=== PATIENT | female | born 1975 | race Caucasian/White ===

== ENCOUNTER → 2025-01-08 15:32 | Outpatient (REF) | payer OTHER, SELFPAY | LOC: HWRAD 15:32 | PROVIDERS: ATTENDING PHYSICIAN Family Medicine | DX: S13.4XXA Sprain of ligaments of cervical spine, initial encounter (principal) | CPT/HCPCS: 72052 ==

== ENCOUNTER → 2025-05-20 11:11 | Outpatient (REF) | payer OTHER, SELFPAY | LOC: HWRAD 11:11 | PROVIDERS: ATTENDING PHYSICIAN Nurse Practitioner Adult Health; FAMILY PHYSICIAN Family Medicine | DX: G44.301 Post-traumatic headache, unspecified, intractable (principal) | CPT/HCPCS: 70450 ==